=== PATIENT | female | born 1955 | race Caucasian/White ===

== ENCOUNTER 2016-11-25 16:57 | Emergency (ER) | payer BC ==
[2016-11-25 17:31] VITALS: BP 138/94
[2016-11-25] MEDS ORDERED: HYDROcodone/ACETAMIN 5-325 MG* 1 TAB PO ONE (17:38)
--- NOTE | 2016-11-25 17:39 | UC ---
Elbow Pain - HPI Summary HPI Summary: 61 yo female with left elbow and wrist pain after a fall she is right handed elbow is worse than wrist pain unable to straighten left elbow - History of Current Complaint Chief Complaint: UCUpperExtremity Stated Complaint: FALL-LT ELBOW/WRIST INJURY Time Seen by Provider: 11/25/16 17:29 Onset/Duration: Hours Severity Initially: Moderate Severity Currently: Moderate Pain Intensity: 7 Pain Scale Used: 0-10 Numeric Location Of Pain: Is Discrete @ Character: Sharp, Aching Aggravating Factor(s): Movement Alleviating Factor(s): Rest - Allergies/Home Medications Allergies/Adverse Reactions: Allergies Allergy/AdvReac Type Severity Reaction Status Date / Time No Known Allergies Allergy Verified 01/24/15 20:32 Home Medications: Home Medications Diclofenac Sodium EC TAB* [Voltaren EC TAB*] 75 mg PO BID PRN 11/25/16 [History Confirmed 11/25/16] PMH/Surg Hx/FS Hx/Imm Hx Previously Healthy: Yes - Surgical History Surgical History: None - Family History Known Family History: Positive: Hypertension - Social History Alcohol Use: Weekly Alcohol Amount: wine 5 times weekly Substance Use Type: None Smoking Status (MU): Never Smoked Tobacco Review of Systems Constitutional: Negative Skin: Negative Eyes: Negative ENT: Negative Respiratory: Negative Cardiovascular: Negative Gastrointestinal: Negative Genitourinary: Negative Motor: Negative Neurovascular: Negative Musculoskeletal: Arthralgia Neurological: Negative Psychological: Negative All Other Systems Reviewed And Are Negative: Yes Physical Exam Triage Information Reviewed: Yes Appearance: Well-Appearing, Well-Nourished, Pain Distress Vital Signs: Initial Vital Signs Temp 98 F 11/25/16 17:17 Pulse 76 11/25/16 17:17 Resp 16 11/25/16 17:17 BP 138/94 11/25/16 17:17 Pulse Ox 100 11/25/16 17:17 Vital Signs Reviewed: Yes Eyes: Positive: Conjunctiva Clear ENT: Positive: Hearing grossly normal. Negative: Nasal congestion, Nasal drainage, Trismus, Muffled/hoarse voice Neck: Positive: Supple, Nontender Respiratory: Positive: Lungs clear, Normal breath sounds Cardiovascular: Positive: RRR, No Murmur Musculoskeletal: Positive: ROM Limited @ - left elbow Neurological: Positive: Alert Psychological: Positive: Normal Response To Family Skin Exam: Normal Procedures - Splinting Location: left arm Hand-Made Type: orthoglass Splint: posterior splint Pre-Proc Neuro Vasc Exam: normal Post-Proc Neuro Vasc Exam: normal Elbow Pain Course/Dx - Differential Dx/Diagnosis Provider Diagnoses: left elbow injury/effusion Suspect occult radial head fracture. left wrist sprain Discharge - Discharge Plan Condition: Stable Disposition: HOME Prescriptions: HYDROcodone/ACETAMIN 5-325 MG* [[place] 5-325 TAB*] 1 tab PO Q4H PRN #15 tab MDD 5 PRN Reason: Pain Patient Education Materials: Elbow Fracture in Adults (ED) Referrals: Valentin Linares MD [Medical Doctor] - As Soon As Possible Additional Instructions: splint sling ice YOUR XR IS SUGGESTIVE OF A FRACTURE BUT ONE WAS NOT SEEN I suspect a non displaced radial head fracture Images Hands: 1 - tender unlar aspect
--- NOTE | 2016-11-25 18:39 | RAD ---
INDICATION: Left elbow injury. TECHNIQUE: 4 views of the left elbow were obtained. FINDINGS: The bones are in normal alignment. There is a large joint effusion present. No fracture is seen. Joint spaces appear maintained. IMPRESSION: JOINT EFFUSION SUGGESTIVE OF AN UNDERLYING FRACTURE. RECOMMEND A FOLLOW-UP X-RAY EXAMINATION OF THE ELBOW IN 7-10 DAYS TO EXCLUDE A NONDISPLACED FRACTURE.
--- NOTE | 2016-11-25 18:41 | RAD ---
INDICATION: Left wrist injury. TECHNIQUE: 3 views of the left wrist were obtained. FINDINGS: There is soft tissue swelling present along the dorsal and medial aspect of the wrist. The bones are osteopenic. No fracture is seen. There is a sensory ossicle adjacent to the ulnar styloid process. IMPRESSION: SOFT TISSUE SWELLING, NO FRACTURE IS SEEN.
== END 2016-11-25 19:09 | disposition home or self-care (01) ==
LOC: UCCORT 16:57
DX: S59.902A Unspecified injury of left elbow, initial encounter (principal); S63.502A Unspecified sprain of left wrist, initial encounter; W19.XXXA Unspecified fall, initial encounter; Y93.9 Activity, unspecified; Y92.9 Unspecified place or not applicable; M25.422 Effusion, left elbow
CPT/HCPCS: 99213; G0463

== ENCOUNTER 2021-04-01 14:21 | Observation (INO) ==
[2021-04-01] MEDS ORDERED: diPHENhydraMINE 25 mg TAB PO PRN (15:43)
[2021-04-01] MEDS ORDERED: Ondansetron ODT 4 mg TAB 4 MG TAB PO PRN (15:43)
[2021-04-01] MEDS ORDERED: Ondansetron 4 mg VIAL 2 MG/ML 2 ml VIAL IV PRN (15:43)
[2021-04-01] MEDS ORDERED: diPHENhydraMINE IV 50 MG/ML 1 ml VIAL (BENADRYL) IV PRN (15:43)
[2021-04-01] MEDS ORDERED: Morphine 2 MG/ML SYRINGE IV PRN (15:43)
[2021-04-01] MEDS ORDERED: Polyethylene Glycol 3350 17 GM PACKET PO PRN (16:25)
[2021-04-01] MEDS ORDERED: Magnesium Hydroxide LIQ 30 ML UDC PO PRN (16:25)
[2021-04-01] MEDS ORDERED: Senna TAB 8.6 mg TAB PO PRN (16:25)
[2021-04-01] MEDS ORDERED: Propofol 10 MG/ML 20 ML BTL IV PUSH ONE (17:31)
[2021-04-01] MEDS ORDERED: NS 0.9% 1000 ml BAG 1,000 ML IV ONE (17:32)
[2021-04-01 18:28] LABS: ABS Basophils 0.1 10^3/ul (0-0.2); ABS Eosinophils 0.1 10^3/ul (0-0.6); ABS Lymphocytes 1.5 10^3/ul (1.0-4.8); ABS Monocytes 0.6 10^3/ul (0-0.8); ABS Neutrophils 8.3 10^3/ul (1.5-7.7); Hematocrit 41 % (35-47); Hemoglobin 13.7 g/dL (12.0-16.0); Lymphocyte % 13.8 %; Mean Corpuscular HGB Conc 34 g/dL (31-36); Mean Corpuscular Hemoglobin 32 pg (27-31); Mean Corpuscular Volume 94 fL (80-97); Mean Platelet Volume 7.4 fL (7.4-10.4); Platelet Count 328 10^3/uL (150-450); Red Blood Count 4.36 10^6 /uL (3.70-4.87); Red Cell Distribution Width 14 % (10-15); White Blood Count 10.6 10^3/uL (3.5-10.8)
[2021-04-01 18:36] LABS: Activated Partial Thrombo Time 29.5 seconds (26.0-38.0); INR 1.03 (0.86-1.15)
[2021-04-01 18:48] LABS: EGFR African American 78.3 (>60); EGFR Non-African American 64.7 (>60)
[2021-04-01] MEDS ORDERED: Heparin 5000 UNITS/ML 1 mL VIAL SUBCUT ONE (21:00)
[2021-04-01] MEDS: Magnesium Hydroxide LIQ 30 ML UDC PO SCH (21:07)
[2021-04-02] MEDS ORDERED: Lactated Ringers 1000 ml BAG 1,000 ML IV SCH (06:00)
[2021-04-02 06:12] LABS: ABS Basophils 0.1 10^3/ul (0-0.2); ABS Eosinophils 0.3 10^3/ul (0-0.6); ABS Lymphocytes 1.8 10^3/ul (1.0-4.8); ABS Monocytes 0.6 10^3/ul (0-0.8); ABS Neutrophils 6.5 10^3/ul (1.5-7.7); Eosinophil % 3.1 %; Hematocrit 37 % (35-47); Hemoglobin 12.6 g/dL (12.0-16.0); Lymphocyte % 19.4 %; Mean Corpuscular HGB Conc 34 g/dL (31-36); Mean Corpuscular Hemoglobin 32 pg (27-31); Mean Corpuscular Volume 93 fL (80-97); Mean Platelet Volume 8.4 fL (7.4-10.4); Platelet Count 316 10^3/uL (150-450); Red Blood Count 3.94 10^6 /uL (3.70-4.87); Red Cell Distribution Width 14 % (10-15); White Blood Count 9.3 10^3/uL (3.5-10.8)
[2021-04-02 06:15] LABS: INR 1.04 (0.86-1.15)
[2021-04-02 06:30] LABS: EGFR African American 94.1 (>60); EGFR Non-African American 77.8 (>60); Potassium 3.9 mmol/L (3.5-5.0)
[2021-04-02] MEDS: Magnesium Hydroxide LIQ 30 ML UDC PO SCH ×2 (10:28→20:58)
[2021-04-02] MEDS: Vitamin THERAPEUTIC TAB PO SCH (10:28)
[2021-04-02] MEDS ORDERED: ceFAZolin 2 GM in NS PREMIX 2 GM/100 ML BAG IVPB ONE (12:24)
[2021-04-02] MEDS ORDERED: Naloxone 0.4 mg VIAL 0.4 mg/ml 1 ml VIAL IV PRN (13:02)
[2021-04-02] MEDS ORDERED: Prochlorperazine 5 mg/ml 2 ml VIAL (10 mg) IV PRN (13:02)
[2021-04-02] MEDS ORDERED: oxyCODONE/Acetamin 5/325 mg TAB PO PRN (18:28)
[2021-04-02] MEDS ORDERED: Ondansetron ODT 4 mg TAB 4 MG TAB PO PRN (18:30)
[2021-04-02] MEDS ORDERED: Morphine 2 MG/ML SYRINGE IV PRN (18:30)
[2021-04-02] MEDS: ceFAZolin 1 GM X 3 DOSES POST-OP Q8H (AddVan) IVPB SCH (20:58)
[2021-04-03] MEDS: oxyCODONE/Acetamin 5/325 mg TAB PO PRN ×3 (05:36→14:16)
[2021-04-03] MEDS: ceFAZolin 1 GM X 3 DOSES POST-OP Q8H (AddVan) IVPB SCH ×2 (05:36→14:16)
[2021-04-03 07:18] LABS: Hematocrit 35 % (35-47); Hemoglobin 11.9 g/dL (12.0-16.0); Mean Platelet Volume 7.2 fL (7.4-10.4); Platelet Count 300 10^3/uL (150-450)
[2021-04-03 07:28] LABS: Calcium 8.8 mg/dL (8.6-10.3); EGFR African American 94.1 (>60); EGFR Non-African American 77.8 (>60); Potassium 4.6 mmol/L (3.5-5.0)
[2021-04-03 07:32] LABS: INR 1.03 (0.86-1.15)
[2021-04-03] MEDS: Magnesium Hydroxide LIQ 30 ML UDC PO SCH (08:42)
[2021-04-03] MEDS: Vitamin THERAPEUTIC TAB PO SCH (08:42)
[2021-04-03 11:17] VITALS: BP 99/62
== END 2021-04-03 17:00 | disposition home or self-care (01) ==
LOC: ED 14:21 → SSU 19:21 → INTOOBSV 19:21
PROVIDERS: ADMIT Internal Medicine; ATTEND Orthopaedic Surgery